=== PATIENT | female | born 1935 | race Caucasian/White ===

== ENCOUNTER 2019-09-12 05:26 | Day surgery (SDC) | payer MEDICARE, BC ==
[2019-09-09 11:16] LABS: BASOPHILS # (AUTO) 0.1 X10'3 (0-0.2); BASOPHILS % (AUTO) 0.9 % (0-1); EOSINOPHILS # (AUTO) 0.1 X10'3 (0-0.9); EOSINOPHILS % (AUTO) 2.5 % (0-6); LYMPHOCYTES # (AUTO) 1.5 X10'3 (1.1-4.8); LYMPHOCYTES % (AUTO) 25.6 % (21-51); MEAN CORPUSCULAR HEMOGLOBIN 28.5 PG (27.0-31.0); MEAN CORPUSCULAR HGB CONC 32.9 g/dL (33.0-36.5); MEAN CORPUSCULAR VOLUME 86.5 FL (78-98); MEAN PLATELET VOLUME 9.1 FL (7.4-10.4); MONOCYTES # (AUTO) 0.4 X10'3 (0-0.9); NEUTROPHILS # (AUTO) 3.8 X10'3 (1.8-7.7); PRE OP HEMATOCRIT 43.6 % (35.0-45.0); PRE OP HEMOGLOBIN 14.3 g/dL (12.0-16.0); PRE OP PLATELET COUNT 168 X10'3 (140-440); RED BLOOD COUNT 5.04 X10'6 (4.20-5.60); RED CELL DISTRIBUTION WIDTH 14.3 % (11.5-14.5)
[2019-09-09 11:36] LABS: ALBUMIN 3.6 G/DL (3.4-5.0); ALKALINE PHOSPHATASE 103 IU/L (46-116); BLOOD UREA NITROGEN 27 MG/DL (7-18); BUN/CREATININE RATIO 29.3 (6.6-38.0); CHLORIDE 107 MMOL/L (99-107); CREATININE 0.92 MG/DL (0.40-0.90); PRE OP ALT 22 U/L (30-65); PRE OP ANION GAP 7 (8-16); PRE OP AST 19 U/L (10-37); PRE OP BILIRUB, TOTAL 0.4 MG/DL (0.0-1.0); PRE OP GLUCOSE 137 MG/DL (70-104); PRE OP POTASSIUM 4.5 MMOL/L (3.4-5.1); PRE OP SODIUM 141 MMOL/L (135-145); TOTAL CARBON DIOXIDE 26.9 MMOL/L (24-32); TOTAL PROTEIN 7.3 G/DL (6.4-8.2); eGFR 58 ML/MIN
[~2019-09-12] VITALS: Ht 157.5 cm; Wt 87.2 kg
[2019-09-12] VITALS (8 sets, daily range): BP systolic 136–152; BP diastolic 71–78
[~2019-09-12 05:26] MED LIST: BENA20TA10 PO; CARV6.252 PO; CELE100C98 PO; ringers solution, lacted 1,000 ML IV SCH
[2019-09-12] MEDS ORDERED: famotidine 10mg tablet PO ONE (05:30)
[2019-09-12] MEDS ORDERED: DOCUMENT DATE & TIME OF BETA-BLOCKER PO ONE (05:30)
[2019-09-12] MEDS ORDERED: LIDOcaine 1% (10mg/ml) 2ml vial ONE (05:58)
[2019-09-12] MEDS ORDERED: cefazolin/dext.iso 2gm/100ml 100 ML IV ONE (06:00)
[2019-09-12] MEDS ORDERED: BUPIVAcaine/PF 2.5 mg/ml (0.25%) 30ml vial ONE (06:39)
[2019-09-12] MEDS ORDERED: LIDOcaine 0.5% (5mg/ml) 50ml vial ONE (07:12)
[2019-09-12] MEDS ORDERED: ringers solution, lacted 1,000 ML IV SCH (07:14)
[2019-09-12] MEDS ORDERED: hydrALAZINE 20mg/ml inj. IV PRN (07:15)
[2019-09-12] MEDS ORDERED: morphine 4 MG/ML inj SYRINge IV PRN ×2 (07:15)
[2019-09-12] MEDS ORDERED: labetalol 20mg/4ml (5mg/ml) syringe IV PRN (07:15)
[2019-09-12] MEDS ORDERED: ondansetron/PF 4mg/2ml inj IV PRN (07:15)
[2019-09-12] MEDS ORDERED: labetalol 20mg/4ml (5mg/ml) syringe IV ONE (07:20)
[2019-09-12] MEDS ORDERED: fentaNYL/PF 50MCG/1 ML 2ML syringe ONE (07:20)
[2019-09-12] MEDS ORDERED: MIDAZolam 5mg/5ml vial ONE (07:20)
[2019-09-12] MEDS ORDERED: propofol inj 20 ML IV ONE (07:22)
[2019-09-12] MEDS ORDERED: LIDOcaine 2% (20mg/ml) 5ml vial ONE (07:22)
--- NOTE | 2019-09-12 07:57 | NUR ---
Received from OR via [facility], accompanied by Anesthesiologist DR THURMAN and report given by Anesthesiologist. 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 Addendum: 09/12/19 at 0823 by Darby Reece RN Amended: Links added.
--- NOTE | 2019-09-12 09:07 | NUR ---
D/C INSTRUCTIONS GIVEN AND GONE OVER W/PT WHO VERBALIZES UNDERSTANDING, PT D/CD TO HOME VIA W/C TO PRIVATE VEHICLE W/O INCIDENT. Addendum: 09/12/19 at 0923 by Darby Reece RN Amended: Links added.
== END 2019-09-12 09:07 | disposition home or self-care (01) ==
LOC: PAS 05:26
PROVIDERS: ATTEND Orthopaedic Surgery Hand Surgery
DX: G56.02 Carpal tunnel syndrome, left upper limb (principal); M65.322 Trigger finger, left index finger; M65.332 Trigger finger, left middle finger; I10 Essential (primary) hypertension; K21.9 Gastro-esophageal reflux disease without esophagitis; Z79.891 Long term (current) use of opiate analgesic; Z79.899 Other long term (current) drug therapy; Z98.890 Other specified postprocedural states
CPT/HCPCS: 26055; 36415; 64721; 80053; 82948; 85025; 93005; A6222; J2001; J2250; J2704; J3010; J3490; A4215; A6449; J7120

== ENCOUNTER 2025-02-04 08:05 | Outpatient (CLI) | payer MEDICARE, BC ==
[~2025-02-04 08:05] MED LIST changes: -BENA20TA10 PO; +BENA20TA83 PO; +CELE-148 PO; -CELE100C98 PO; +iohexol 350 MG/ML 50ML vial IV ONE; +iohexol 350MG/ML 100ml bottle IV ONE; -ringers solution, lacted 1,000 ML IV SCH
[2025-02-04 08:45] LABS: ALBUMIN 3.3 G/DL (3.4-5.0); ANION GAP 8 (8-16); BLOOD UREA NITROGEN 36 MG/DL (7-18); BUN/CREATININE RATIO 31.9 (10.0-20.0); CALCIUM 8.9 MG/DL (8.5-10.1); CHLORIDE 104 MMOL/L (99-107); CREATININE 1.13 MG/DL (0.40-0.90); GLUCOSE 129 MG/DL (70-104); POTASSIUM 4.6 MMOL/L (3.5-5.1); SODIUM 140 MMOL/L (135-145); TOTAL CARBON DIOXIDE 28.4 MMOL/L (24-32); eGFR 45 ML/MIN
--- NOTE | 2025-02-04 14:47 | RADIOLOGY REPORT ---
Examination: CT CTA ABDOMEN LOWER EXTR RUNOFF CLINICAL HISTORY: ATHSCL NOOKSACK ARTERIES OF EXTRM W INTRMT MELE, BI Comparison: None Technique: Using helical technique, CT data from the abomen through the toes was obtained during rapi d IV contrast infusion. The examination was timed to the arterial system to generate a CT angiographi c study. 3D images were generated at an independent work station. Dose reduction techniques included automated exposure control. Radiation Dose Information: CT Dose: CTDI volume is 4.9 mGy. Dose-length product is 1811.5 mGy*cm Findings: Vascular: Abdominal aorta: Normal caliber, patent. Diffuse vascular atherosclerotic disease. Celiac artery: High-grade stenosis proximally SMA: Patent Renal arteries: Patent ELLY: Patent Right lower extremity: Common iliac artery: Patent External iliac artery: Patent Internal iliac artery: Patent Common femoral artery: Patent Profunda femoral artery: Patent Superficial femoral artery: Mid to distal high-grade short-segment stenosis. Popliteal artery: Patent Anterior tibial artery: Patent Peroneal tibial trunk: Patent Peroneal artery: Patent Posterior tibial artery: Patent Dorsalis pedis artery: Patent Left lower extremity: Common iliac artery: Patent External iliac artery: Patent Internal iliac artery: Patent Common femoral artery: Patent Profunda femoral artery: Patent Superficial femoral artery: Patent Popliteal artery: Patent Anterior tibial artery: Patent Peroneal tibial trunk: Patent Peroneal artery: Patent Posterior tibial artery: Patent Dorsalis pedis artery: Patent Portal/mesenteric veins: normal Abdominal systemic veins: normal Abdomen/Pelvis: Liver: Mildly nodular hepatic contours may represent early changes of cirrhosis. No focal hepatic les ion. The portal veins are patent. Biliary System: Gallbladder: Normal Bile Ducts: No intrahepatic or extrahepatic biliary ductal dilation. Spleen: No splenomegaly or focal splenic lesion. Pancreas: No masses or ductal dilation. Adrenals: Normal. Urinary System: Kidneys and Ureters: Indeterminate left lower pole hypoattenuating lesion measures 1.9 cm. Bladder: Normal. GI System: Diverticulosis. Lymph nodes: Indeterminate gastrohepatic ligament mass or lymph node measures 2.6 cm. Peritoneal cavity and surface: No free fluid. No pneumoperitoneum. Soft Tissues: Normal. Reproductive Organs: Normal. Bones: No acute fracture or aggressive osseous lesion. Osteopenia. Multilevel degenerative changes o f the spine. Lumbar spinal fixation hardware at L4-L5. Bilateral hip arthroplasty. 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 High-grade short-segment stenosis of the mid to distal right superficial femoral artery. 3-vessel arterial flow into bilateral feet. Diffuse vascular atherosclerotic disease. Possible early changes of hepatic cirrhosis. Indeterminate 2.6 cm gastrohepatic ligament lymph node or mass. Indeterminate 1.9 cm hypoattenuating lesion in the lower pole of the left kidney possibly representin g a complex cyst. This can be further evaluated with nonemergent ultrasound if clinically indicated.
== END 2025-02-04 23:59 | disposition home or self-care (01) ==
LOC: RAD 08:05
PROVIDERS: ATTEND Internal Medicine Interventional Cardiology
DX: I70.213 Atherosclerosis of native arteries of extremities with intermittent claudication, bilateral legs (principal); R60.0 Localized edema; I77.4 Celiac artery compression syndrome; K74.60 Unspecified cirrhosis of liver; K57.30 Diverticulosis of large intestine without perforation or abscess without bleeding; M47.816 Spondylosis without myelopathy or radiculopathy, lumbar region; Z96.642 Presence of left artificial hip joint; Z96.641 Presence of right artificial hip joint
CPT/HCPCS: 36415; 75635; 80048; Q9967